=== PATIENT | female | born 1975 | race Caucasian/White ===

== ENCOUNTER 2022-06-05 07:08 | Emergency (ER) | payer OTHER ==
[~2022-06-05] VITALS: Ht 175.3 cm; Wt 83.9 kg
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
[2022-06-05] MEDS ORDERED: IBUPROFEN 400 MG TABLET ONE (07:59)
[2022-06-05] MEDS ORDERED: IBUPROFEN 400 MG TABLET PO ONE (08:00)
[2022-06-05] MEDS ORDERED: ONDANSETRON 4 MG TAB.RAPDIS SL ONE (09:30)
[2022-06-05] MEDS ORDERED: AMOX875T2 PO (09:40)
[2022-06-05] MEDS ORDERED: AMOXICILLIN TRIHYDRATE 250 MG CAPSULE ONE (09:53)
--- NOTE | 2022-06-05 09:58 | NUR ---
Patient discharged to home in stable condition. Written and verbal after care instructions given. Patient verbalizes understanding of instruction.
[2022-06-05 10:00] VITALS: BP 122/70
[2022-06-05] MEDS ORDERED: AMOXICILLIN TRIHYDRATE 500 MG CAPSULE PO ONE ×2 (10:00)
== END 2022-06-05 10:16 | disposition home or self-care (01) ==
LOC: ER 07:12
DX: R07.9 Chest pain, unspecified (principal); V43.52XA Car driver injured in collision with other type car in traffic accident, initial encounter; Y93.89 Activity, other specified; Y92.410 Unspecified street and highway as the place of occurrence of the external cause; Y99.8 Other external cause status
CPT/HCPCS: 71045-TC